=== PATIENT | male | born 1985 | race Two or more races ===

== ENCOUNTER 2021-12-01 19:05 | Emergency (ER) | payer SELFPAY | END 2021-12-01 21:09 | disposition home or self-care (01) | LOC: MW.ED 19:05 | DX: S62.635A Displaced fracture of distal phalanx of left ring finger, initial encounter for closed fracture (principal); W22.09XA Striking against other stationary object, initial encounter | CPT/HCPCS: 73130-26-LT; 73130-LT; 99283; 99283-25 ==

== ENCOUNTER 2022-01-11 22:47 | Emergency (ER) | payer SELFPAY ==
[2022-01-12] MEDS ORDERED: Tetracaine HCl/PF 0.5% 4 ML Bottle ONE (01:29)
[2022-01-12] MEDS ORDERED: Tetracaine HCl/PF 0.5% 4 ML Bottle EYEBOTH STA (02:00)
== END 2022-01-12 02:11 | disposition home or self-care (01) ==
LOC: MW.ED 22:47
DX: T15.91XA Foreign body on external eye, part unspecified, right eye, initial encounter (principal); Z79.899 Other long term (current) drug therapy
CPT/HCPCS: 99283